=== PATIENT | female | born 1955 | race Caucasian/White ===

== ENCOUNTER 2018-08-14 11:13 | Outpatient (CLI) | payer OTHER, MEDICARE | END 2018-08-14 11:14 | disposition home or self-care (01) | LOC: BICMAMMO 11:13 | PROVIDERS: ATTEND Internal Medicine Medical Oncology | DX: Z12.31 Encounter for screening mammogram for malignant neoplasm of breast (principal); Z85.9 Personal history of malignant neoplasm, unspecified | CPT/HCPCS: 77063; 77067 ==

== ENCOUNTER 2018-10-21 11:38 | Day surgery (SDC) | payer OTHER, MEDICARE ==
[2018-10-21] MEDS ORDERED: Sodium Chloride 0.9% 20 ML ONE (11:49)
[2018-10-21] MEDS ORDERED: diphenhydrAMINE 25 MG CAP PO SCH (12:00)
[2018-10-21] MEDS ORDERED: Acetaminophen 500 MG TAB PO SCH (12:00)
[2018-10-21] MEDS ORDERED: OCTAGAM 10% 20 GM, OCTAGAM 10% 5 GM in Admixture Fee 1 EACH IVPB SCH (12:00)
[2018-10-21 12:03] VITALS: TEMP 98.3
[2018-10-21] MEDS ORDERED: OCTAGAM 10% 30 GM in Admixture Fee 1 EACH IVPB SCH (12:15)
[2018-10-21 15:05] VITALS: BP 175/85
== END 2018-10-21 15:05 | disposition home or self-care (01) ==
LOC: ONC/OP 11:38
PROVIDERS: ATTEND Internal Medicine Medical Oncology
DX: C90.01 Multiple myeloma in remission (principal); D80.1 Nonfamilial hypogammaglobulinemia; J44.9 Chronic obstructive pulmonary disease, unspecified; Z88.1 Allergy status to other antibiotic agents; Z87.891 Personal history of nicotine dependence; Z79.899 Other long term (current) drug therapy
CPT/HCPCS: 96365; 96366; J1568

== ENCOUNTER 2018-12-11 13:51 | Outpatient (CLI) | payer OTHER, MEDICARE ==
--- NOTE | 2018-12-11 17:09 | MRI ---
MRI CERVICAL SPINE WITHOUT CONTRAST 12/11/18 Multiplanar and multisequential images were obtained. INDICATIONS: Cervical pain. Cervical stenosis. Comparison made to MRI cervical spine dated 06/15/13. FINDINGS: The cervical vertebrae maintain height and alignment. Degenerative changes are noted. Anterior osteop hytes in the cervical vertebrae. There is loss of disc space at C5-6 and C6-7, similar to the prior study. Posterior spondylosis and disc bulge more prominent at multiple levels today. At C2-3, no significant disc bulge or spondylosis. At C3-4, posterior disc bulge and spondylosis impinge on the anterior cord. There is hypertrophic rosa isela nges in the posterior canal impinging on the posterior cord. Moderate cervical canal stenosis at this level. Evidence of bilateral foraminal stenosis. At C4-5, posterior disc bulge and spondylosis impinge on and mildly indents the anterior cord. Hypert rophic changes in the posterior canal impinge on the posterior cord. Moderate cervical canal stenosis . Bilateral foraminal stenosis due to facet and uncinate hypertrophy. At C5-6, prominent disc bulge and spondylosis impinge on and indents the anterior cord. Moderate cerv ical canal stenosis with bilateral foraminal stenosis. At C6-7, disc bulge and spondylosis impinge on the anterior cord. Mild to moderate cervical canal geri nosis and bilateral foraminal stenosis. Cord signal appears normally maintained without evidence of myelomalacia. IMPRESSION: Disc bulge and spondylitic changes at multiple levels of the cervical spine impinge on the cord. The re is moderate cervical canal stenosis with cord impingement at C3-4, C4-5, C5-6 and C6-7 levels. For aminal stenosis at these levels as noted above. CT may be of benefit to better assess the osseous hyp ertrophic changes. POS: MARCI
--- NOTE | 2018-12-11 17:29 | MRI ---
MR OF THE LUMBAR SPINE WITHOUT CONTRAST 12/11/18 INDICATION: History of leg pain for several years with low back pain and lumbar radiculopathy. COMPARISON: Lumbar spine radiograph dated 07/13/13. FINDINGS: The anterior translation of L4 on L5 appears slightly more pronounced. There is still grade I anterol isthesis present. No pars defect is grossly evident. Conus is seen to terminate at the L1 vertebral l evel. At L5-S1, there is advanced facet joint degenerative change and a asymmetric broad based bulge. There is no appreciable central canal or neural foraminal narrowing. At L4-5, there is severe central canal narrowing due to the anterolisthesis, facet hypertrophy, broad based bulge and ligamentum flavum hypertrophy. Loss of disc space height in additional to anterolist hesis induces mild to moderate bilateral neural foraminal narrowing. At L3-4, there is a broad based bulge with facet hypertrophy without appreciable central canal or radha ral foraminal narrowing. At the L2-3 level, there is mild facet joint degenerative change but no appreciable central canal or neural foraminal narrowing. At L1-2, there is a broad based bulge with facet hypertrophy but no appreciable central canal narrowi ng. There is mild neural foraminal encroachment. At T12-L1, there is a broad based disc osteophyte complex without appreciable central canal or neural foraminal narrowing. IMPRESSION: 1. Severe stenosis at L4-5 due to grade I anterolisthesis, disc degenerative and facet osteoarth ritic change. 2. Mild to moderate bilateral neural foraminal narrowing at L4-5. POS: MARCI
== END 2018-12-11 13:52 | disposition home or self-care (01) ==
LOC: TBSIIMAG 13:51
PROVIDERS: ATTEND Neurological Surgery
DX: M51.16 Intervertebral disc disorders with radiculopathy, lumbar region (principal); M48.02 Spinal stenosis, cervical region; M54.5 Low back pain; M54.2 Cervicalgia; M47.26 Other spondylosis with radiculopathy, lumbar region; M43.16 Spondylolisthesis, lumbar region; M48.061 Spinal stenosis, lumbar region without neurogenic claudication; M47.812 Spondylosis without myelopathy or radiculopathy, cervical region; M50.90 Cervical disc disorder, unspecified, unspecified cervical region
CPT/HCPCS: 72141; 72148

== ENCOUNTER 2018-12-12 11:36 | Day surgery (SDC) | payer OTHER, MEDICARE ==
[2018-12-12 11:47] VITALS: BP 144/82; TEMP 98.2
[2018-12-12] MEDS ORDERED: diphenhydrAMINE 50 MG in Sodium Chloride 0.9% 50 ML IVPB SCH (12:00)
[2018-12-12] MEDS ORDERED: PRIVIGEN IVPB SCH ×2 (12:00)
[2018-12-12] MEDS ORDERED: Acetaminophen 500 MG TAB PO SCH (12:00)
[2018-12-12] MEDS ORDERED: Sodium Chloride 0.9% 20 ML ONE (13:35)
== END 2018-12-12 14:30 | disposition home or self-care (01) ==
LOC: ONC/OP 11:36
PROVIDERS: ATTEND Internal Medicine Medical Oncology
DX: D80.1 Nonfamilial hypogammaglobulinemia (principal); C90.01 Multiple myeloma in remission; F31.9 Bipolar disorder, unspecified; F41.9 Anxiety disorder, unspecified; J44.9 Chronic obstructive pulmonary disease, unspecified; Z87.891 Personal history of nicotine dependence; Z79.899 Other long term (current) drug therapy; Z79.52 Long term (current) use of systemic steroids; Z88.1 Allergy status to other antibiotic agents; Z88.8 Allergy status to other drugs, medicaments and biological substances
CPT/HCPCS: 36415; 80053; 82248; 82728; 83615; 83883; 84100; 84165; 84550; 96375; 96413; 96415; J1200; J1459; J7050

== ENCOUNTER 2019-02-05 09:39 | Inpatient (IN) | payer OTHER, MEDICARE ==
--- NOTE | 2019-02-04 14:00 | HP ---
HISTORY OF PRESENT ILLNESS: This is a 63-year-old female who returns to our office after a 10-year hiatus. The patient states that 10 years ago [address] saw Dr[address] Perez for some neck pain. At that time, he prescribed injections. The injections gave good relief until about a month ago. The patient complains of severe neck pain and pain between her shoulder blades that moves down the right arm to her elbow. She states that both hands will go numb and they do not feel like her own. She has become more clumsy and drops items and it is much more difficult to write. She states that her balance has progressively gotten worse. The patient is also complaining of some back pain, worse on the right than the left and goes down the back of her leg to the lateral aspect of her foot. The patient states that her neck and her low back are very painful and when she turns over at night. She states that both her feet are numb. The patient denies recent physical therapy. REVIEW OF SYSTEMS: A 10-point review of systems has been completed and is negative other than stated in the above HPI. PAST MEDICAL HISTORY: 1. Cancer/tumor. 2. Epilepsy. 3. Chronic bronchitis. 4. . 5. Depression. 6. Anxiety. 7. Bipolar. 8. Dementia. 9. Anemia. 10. History of blood transfusion. PAST SURGICAL HISTORY: 1. Brain surgery. 2. Hysterectomy. PREVIOUS HOSPITALIZATIONS: 1. Pneumonia. 2. Diverticulitis. 3. Cancer treatment. FAMILY HISTORY: Father is at 78, diagnosed with heart disease and stroke. Mother is at 76, lung cancer diagnosis. Children are alive. Grandmother has lung cancer. Grandfather, cardiac disease. SOCIAL HISTORY: The patient is a former smoker. Drinks alcohol occasionally. Denies any other illicit drugs. She is and right-handed. MEDICATIONS: 1. Levothyroxine. 2. Vitamin D. 3. Trintellix. 4. Aleve. ALLERGIES: TEQUIN. PHYSICAL EXAMINATION: HEENT: Normal. Head is normocephalic and atraumatic. Pupils are equal, round, and reactive to light. NECK: Soft and supple. No masses are noted. Range of motion is intact, worse with flexion and extension. Tenderness posteriorly. NEUROLOGIC: Awake, alert, oriented x3. Memory, attention, fund of knowledge are normal. Cranial nerves are normal. Grossly intact. EXTREMITIES: Upper extremities 5/5 bilateral strength in deltoids, biceps, triceps, wrist extension, finger extension, tandem walk, 2 steps before side step, brisk reflexes of lower extremities. Lower extremities 5/5 bilateral strength, hip flexion, knee flexion, knee extension, dorsiflexion, plantar flexion, EHL, toe extension. Brisk reflexes. No clonus. No Babinski. Sensation equal and tenderness over the sciatic, sacroiliac, and greater trochanteric bursa. IMAGING: MRI of the cervical spine shows severe cord compression at C5-C6 and C6-7. Ycjcpwes-kf-ojuwch and C3-C4, C4-C5 segments are concerning. 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 Dr. Perez has offered a 4-level anterior cervical discectomy and fusion. We have gotten informed consent. We have discussed the indications, risks, benefits, alternatives, and expected results of the surgery. The risks discussed included , but were not limited to, bleeding, infection, CSF leak, nerve damage, weakness, swallowing trouble, feeding tube placement, tracheal injury, esophageal injury, vocal cord injury, spinal cord injury, incontinence, paralysis, ventilator dependence, wheelchair dependence, stroke, loss of vision, carotid artery injury , jugular vein injury, hardware misplacement, cardiopulmonary complications of anesthesia or . Long-term complications discussed included, but were not limited to hardware failure and degradation of surrounding disks. She states that she understands the risks and is willing to proceed. Job ID: [id number] [facility]
[2019-02-04 17:00] VITALS: BMI 27.3
[2019-02-05] MEDS ORDERED: PHENYLEPHRINE-NS 100 MCG/ML 10 ML SYRINGE ONE (10:29)
[2019-02-05] MEDS ORDERED: Ondansetron PF 4 MG/2 ML Vial ONE (10:29)
[2019-02-05] MEDS ORDERED: Lidocaine 1% PF 5 ML VIAL ONE (10:29)
[2019-02-05] MEDS ORDERED: ePHEDrine 50 MG/ML VIAL ONE (10:29)
[2019-02-05] MEDS ORDERED: PROPOFOL 200 MG/20 ML VIAL ONE (10:29)
[2019-02-05] MEDS ORDERED: Dexamethasone 20 MG/5 ML VIAL ONE (10:29)
[2019-02-05] MEDS ORDERED: Glycopyrrolate 0.2 MG/ML 5 ML SYRINGE ONE (10:29)
[2019-02-05] MEDS ORDERED: Rocuronium Bromide 10 MG/ML (10ML VIAL) ONE (10:29)
[2019-02-05 11:29] LABS: Hemoglobin 11.7 g/dL (12.0-16.0); Mean Corpuscular HGB CONC 32.1 g/dL (32.0-36.0); Mean Corpuscular Hemoglobin 29.9 pg (27.0-31.0); Mean Platelet Volume 6.2 fL (7.4-10.4); Platelet Count 356 thou/uL (130-400); RBC Distribution Width 13.3 % (11.5-14.5); Red Blood Cell (RBC) Count 3.91 mill/uL (4.20-5.40)
[2019-02-05 11:37] LABS: INR-International Normal Ratio 0.9; PTT 30.5 SEC (22.9-36.1); Prothrombin Time 12.7 SEC (12.0-14.7)
[2019-02-05] MEDS ORDERED: Sodium Chloride 0.9% 10 ML ONE (11:59)
[2019-02-05] MEDS ORDERED: Thrombin 5000 UNITS/5 ML VIAL ONE ×2 (11:59→17:10)
[2019-02-05] MEDS ORDERED: Fentanyl 100 MCG/2 ML VIAL ONE ×3 (12:29→18:58)
--- NOTE | 2019-02-05 15:53 | EKG ---
Test Reason : PREOP Blood Pressure : / mmHG Vent. Rate : 079 BPM Atrial Rate : 079 BPM P-R Int : 128 ms QRS Dur : 084 ms QT Int : 408 ms P-R-T Axes : 072 074 067 degrees QTc Int : 467 ms Normal sinus rhythm Normal ECG Confirmed by STEVE DAVE ([id number]) on 02/05/2019 3:52:54 PM Referred By: KIRSTEN Confirmed By:STEVE DAVE
[2019-02-05] MEDS ORDERED: Thrombin 20 THOU.UNITS/20 ML VIAL ONE (17:10)
[2019-02-05] MEDS ORDERED: Promethazine HCl 25 MG/ML VIAL SLOW IVP PRN (18:18)
[2019-02-05] MEDS ORDERED: Ondansetron HCl/PF 4 MG/2 ML Vial IVP PRN (18:18)
[2019-02-05] MEDS ORDERED: Promethazine HCl 25 MG/ML VIAL IM PRN ×2 (18:18→19:04)
[2019-02-05] MEDS ORDERED: diphenhydrAMINE 25 MG CAP PO PRN (19:04)
[2019-02-05] MEDS ORDERED: tiZANidine HCl 4 MG TAB PO PRN (19:04)
[2019-02-05] MEDS ORDERED: traMADol HCl 50 MG TAB PO PRN ×2 (19:04)
[2019-02-05] MEDS ORDERED: Bisacodyl 10 MG SUPP PR PRN (19:04)
[2019-02-05] MEDS ORDERED: Acetaminophen 650 MG Suppository PR PRN (19:04)
[2019-02-05] MEDS ORDERED: Milk Of Magnesia 30 ML UDCUP PO PRN (19:04)
[2019-02-05] MEDS ORDERED: Mag-Al 1200 mg/1200 mg/30 ML UDCUP PO PRN (19:04)
[2019-02-05] MEDS ORDERED: Acetaminophen/Codeine 30-300mg Tablet PO PRN (19:04)
[2019-02-05] MEDS ORDERED: diphenhydrAMINE 50 MG/ML VIAL IVP PRN (19:04)
[2019-02-05] MEDS ORDERED: Promethazine 25 MG TAB PO PRN (19:04)
[2019-02-05] MEDS ORDERED: Acetaminophen 325 MG TAB PO PRN (19:04)
[2019-02-05] MEDS ORDERED: Ondansetron PF 4 MG/2 ML Vial IVP PRN (19:04)
[2019-02-05] MEDS ORDERED: Morphine 4 MG/ML VIAL SLOW IVP PRN ×2 (19:04)
[2019-02-05] MEDS ORDERED: Promethazine HCl 25 MG/ML VIAL ONE (19:05)
[2019-02-05] MEDS ORDERED: Sodium Chloride 0.9% 1,000 ML IV SCH (19:15)
[2019-02-05] MEDS: Acetaminophen/Codeine 30-300mg Tablet PO PRN (20:41)
[2019-02-05] MEDS: CEFAZOLIN 2 GM in Premix Bag 1 BAG IVPB SCH (20:42)
[2019-02-05] MEDS ORDERED: Non-Formulary Item 1 EACH (Vit D3-Vit K/Berberine/Hops [Ostera Tablet] 1 TAB) PO SCH (21:00)
[2019-02-05] MEDS ORDERED: Ferrous Sulfate 325 MG TAB PO SCH (21:00)
[2019-02-05] MEDS ORDERED: Melatonin 3 MG TAB PO SCH (21:00)
--- NOTE | 2019-02-06 00:36 | OP ---
DATE OF PROCEDURE: 02/05/2019 VIRTUAL ASSISTANT FOR ADVERTISERS: Yulia Bah PA-C. PREOPERATIVE INDICATION: Prevent further neurological deterioration. PREOPERATIVE DIAGNOSIS: Cervical intervertebral disk disease with cord compression and myelopathy, multiple segments. POSTOPERATIVE DIAGNOSIS: Cervical intervertebral disk disease with cord compression and myelopathy, multiple segments. PROCEDURE PERFORMED: Anterior cervical diskectomy, intervertebral arthrodesis, placement of intervertebral biomechanical device, anterior cervical plating C3-C4, C4-C5, C5-C6, C6-C7, local morselized autograft, morselized allograft, operating microscope. PREOPERATIVE MEDICATIONS: Ancef 2 g IV. DRAIN NUMBER: 1. DRAIN TYPE: A 10-[place]. DESCRIPTION OF PROCEDURE: The patient was brought to the operating room. General endotracheal anesthesia was induced. The patient's head was positioned on a gel-filled doughnut shaped headrest keeping the neck in normal anatomic alignment. A lateral fluoro radiograph was used to plan our incision. The right side of the neck was sterilely prepped and draped. We opened with a 10 blade knife and controlled bleeding with bipolar cautery. We dissected sharply to the platysma and then cut this muscle in line with our incision. We continued our dissection medial to the sternocleidomastoid and lateral to the trachea and esophagus. We arrived at the prevertebral space. We placed a marker at C3-C4 and took a lateral fluoro radiograph to confirm the levels upon which we were operating. We then elevated the longus colli muscles off the anterior surface of C3, C4, C5, C6, and C7. We placed a self-retaining lateral retractor under the longus colli muscles at the level of C6. We placed distraction pins at C5 and C7 and distracted across the intervening interspaces. We incised these interspaces with a 15 blade knife and removed disk contents using curettes and rongeurs. We brought the operating microscope into the field. Under microscopic magnification and using microsurgical techniques, we removed the remainder of the intervertebral disk. We accessed the ventral epidural space with a microcurette and using Kerrison rongeurs we removed posterior osteophytes and the remainder of the intervertebral disk and posterior longitudinal ligament across the entire interspace from one nerve root all the way to the other. This was completed at C5-C6 and at C6-C7. We then turned our attention to arthrodesis. Using curettes, we prepared the endplates for grafting. We measured the height of each of these two interspaces to 6 mm. A 6 mm PEEK intervertebral graft was brought into the field. This was loaded with demineralized bone matrix and morselized autograft. The autograft was obtained from our osteophyte removal during decompression. The osteophytes were cleaned of soft tissue attachments, morcellized, and added into our demineralized bone matrix to form a fusion substrate. The substrate was placed in the PEEK graft and the graft was advanced into the C5-C6 interspace under radiographic guidance to the appropriate depth. In the exact same fashion, a PEEK graft loaded with demineralized bone matrix and morselized autograft was advanced into the C6-C7 interspace to the appropriate depth. We then removed our distraction pins from the C7. We removed our lateral retractor into C4. We placed our distraction pin at C3 and distracted from C3 to C5. In the exact same fashion, we performed our microdiskectomy, removal of posterior osteophytes, removal of posterior longitudinal ligament and decompression of the entire interspace at C3-C4 and again at C4-C5. We prepared the endplates in the same way and measured the height of these interspaces to 7 mm at C3-C4 and 6 mm at C4-C5. At C4-5, the PEEK graft was shallower variety. This was due to the fact the interspace was shorter and the distance between the intervertebral body and the posterior margin of the vertebral bodies. The short C6 graft was loaded with demineralized bone matrix, morselized autograft and advanced into the C4-C5 interspace under radiographic guidance to the appropriate depth. The standard depth of 7 mm intervertebral graft was loaded with demineralized bone matrix, morselized autograft, and advanced into the C3-C4 interspace under radiographic guidance. We then removed our distraction pins. A 5-level anterior cervical plate was brought into the field. We drilled rotor pilot holes through the plate into the vertebral segments at C3, C4, C5, C6, and C7, and we affixed the plate using 14 mm screws. We engaged the locking mechanism over each of the 10 screws. Fixed angle screws were used at C7 and variable angle screws at the rest of the interspaces. AP and lateral fluoro radiographs confirmed adequate positioning of our instrumentation. We irrigated copiously with bacitracin irrigation. We tunneled the drain inferiorly through a separate stab incision. We closed the wound in anatomical layers over the drain. This was a clean case, no contamination. Job ID: [id number]
[2019-02-06] MEDS: Acetaminophen/Codeine 30-300mg Tablet PO PRN ×3 (02:40→11:22)
[2019-02-06] MEDS: CEFAZOLIN 2 GM in Premix Bag 1 BAG IVPB SCH ×2 (04:50→11:18)
[2019-02-06] MEDS ORDERED: Levothyroxine Sodium 75 MCG TAB PO SCH (06:00)
--- NOTE | 2019-02-06 07:24 | PRG ---
DATE OF SERVICE: 02/06/2019 Ms. Gong is one day out from 4-level ACDF for severe cervical spondylotic myelopathy. Her hands are better today than they have been in months to years, and sensation is improved. Her finger dexterity is better. She already walked out around the halls last night. Her drain output looks like it is below threshold for removal. This morning, we will have her up and ambulating. She should wear a collar when she is out of bed. If the drainage is indeed below on average of 5 mL an hour, the drain can be removed and she can be discharged home. She is to wear a collar at home when she is out of bed and I will keep her in a collar for 2 months. Followup will be in 2 weeks. When she is not taking narcotic pain medications, she can drive a car, but needs to use the mirrors. She should not lift over 20 pounds. Showers are acceptable starting this evening. Job ID: [id number]
[2019-02-06 07:55] VITALS: TEMP 98.4
[2019-02-06] MEDS ORDERED: ARMODAFINIL PO SCH (09:00)
[2019-02-06] MEDS ORDERED: FLUoxetine HCl 20 MG CAP PO SCH (09:00)
[2019-02-06] MEDS ORDERED: Loratadine 10 MG TAB PO SCH (09:00)
[2019-02-06] MEDS ORDERED: Lactinex Tablet PO SCH (09:00)
[2019-02-06] MEDS ORDERED: Magnesium Oxide 400 MG TAB PO SCH (09:00)
[2019-02-06 11:30] VITALS: BP 133/88
== END 2019-02-06 12:22 | disposition home or self-care (01) | DRG 472 ==
LOC: SURG A 09:39 → SURG B 19:33
PROVIDERS: ADMIT Neurological Surgery; ATTEND Neurological Surgery
PROC: 0RG20A0 Fusion of 2 or more Cervical Vertebral Joints with Interbody Fusion Device, Anterior Approach, Anterior Column, Open Approach (ICD-10-PCS; principal; 2019-02-05)
PROC: 0RT30ZZ Resection of Cervical Vertebral Disc, Open Approach (ICD-10-PCS; 2019-02-05)
DX: M50.023 Cervical disc disorder at C6-C7 level with myelopathy (principal); M47.12 Other spondylosis with myelopathy, cervical region; M48.02 Spinal stenosis, cervical region; G40.909 Epilepsy, unspecified, not intractable, without status epilepticus; F41.9 Anxiety disorder, unspecified; F31.9 Bipolar disorder, unspecified; F03.90 Unspecified dementia, unspecified severity, without behavioral disturbance, psychotic disturbance, mood disturbance, and anxiety; Z90.710 Acquired absence of both cervix and uterus; Z98.890 Other specified postprocedural states; Z87.891 Personal history of nicotine dependence; Z88.1 Allergy status to other antibiotic agents
CPT/HCPCS: 36415; 76000; 85027; 85610; 85730; 93005; 93010; C1713; C1776; J0131; J1100; J2001; J2405; J2550; J2704; J3010; J3490

== ENCOUNTER 2019-04-02 09:56 | Outpatient (CLI) | payer OTHER, MEDICARE ==
--- NOTE | 2019-04-02 10:20 | RAD ---
Cervical spine 5 views: 04/02/2019 COMPARISON: None available HISTORY: Evaluate spine following surgery FINDINGS: Frontal imaging demonstrates multilevel mid and lower cervical spine facet and uncovertebra l osteophyte formation. The open-mouth odontoid view demonstrates a normal-appearing dens and C1-2 articulation. The Fuchs view demonstrates a normal-appearing dens as well. Multilevel anterior discectomy and fusion hardware is present, spanning the C3-4, C4-5, C5-6, and C6- 7 levels. No evidence for hardware failure. No anterolisthesis or retrolisthesis. Mild soft tissue swelling in the prevertebral space is noted anterior to the fusion plate consistent with recent surgery. Incidental note is made of numerous old incompletely imaged left-sided rib fractures. IMPRESSION: Postoperative and degenerative changes involving the cervical spine as detailed above.
== END 2019-04-02 09:57 | disposition home or self-care (01) ==
LOC: TBSIIMAG 09:56
PROVIDERS: ATTEND Neurological Surgery
DX: M50.00 Cervical disc disorder with myelopathy, unspecified cervical region (principal); M47.12 Other spondylosis with myelopathy, cervical region; M48.02 Spinal stenosis, cervical region; Z98.890 Other specified postprocedural states
CPT/HCPCS: 72040

== ENCOUNTER 2019-08-18 10:33 | Outpatient (CLI) | payer OTHER, MEDICARE ==
--- NOTE | 2019-08-18 14:35 | NM ---
Whole body bone scan: 08/18/2019 COMPARISON: None HISTORY: Multiple myeloma TECHNIQUE: Anterior and posterior whole-body imaging obtained following the intravenous administratio n of 32.3 mCi technetium 99m labeled MDP FINDINGS: Physiologic activity noted within the kidneys and urinary bladder. There are foci of radiotracer activity overlying multiple posterior and lateral left RIBS, suggesting areas of prior fracture. There is a focus of radiotracer activity overlying the posterior aspect of the right 10th rib, also consistent with prior fracture when compared to CT examination performed 01/26/2017. There is prominent radiotracer activity at the sternoclavicular joint on the right, consistent with degenerative change when correlated with 04/25/[address]. There is prominent radiotracer activity overlying the nasal cavity, likely on the basis of paranasal sinus disease. No long bone lesion, spine lesion, pelvic lesion, or calvarial lesion. IMPRESSION: No scintigraphic evidence of metastatic disease.
[2019-08-20 13:10] LABS: A/G Ratio 1.2 (0.7-1.7); Albumin 3.8 g/dL (2.9-4.4); Alpha 1 0.3 g/dL (0.0-0.4); Alpha 2 0.9 g/dL (0.4-1.0); Beta 1.2 g/dL (0.7-1.3); Gamma 0.9 g/dL (0.4-1.8); Globulin, Total 3.2 g/dL (2.2-3.9); M-Spike Not Observed g/dL (Not Observed)
[2019-08-20 14:10] LABS: Albumin-Ur 43.2 % (.); Alpha 2 - Ur 15.5 % (.); Beta-Ur 15.6 % (.); Gamma-Ur 18.8 % (.); M-Spike,% Not Observed % (Not Observed); Protein, Urine Less than 4.0 mg/dL (Not Estab.)
== END 2019-08-18 10:34 | disposition home or self-care (01) ==
LOC: NM 10:33
PROVIDERS: ATTEND Neurological Surgery
DX: Z08 Encounter for follow-up examination after completed treatment for malignant neoplasm (principal); Z85.79 Personal history of other malignant neoplasms of lymphoid, hematopoietic and related tissues
CPT/HCPCS: 78306; 84165; 84166; A9503

== ENCOUNTER 2019-08-20 14:01 | Outpatient (CLI) | payer OTHER, MEDICARE ==
--- NOTE | 2019-08-20 14:50 | RAD ---
XR Lumbar Spine Bending Min 4V History: M 43.16. Pain. Comparison: Lumbar spine MRI December 2018 Findings: No acute fracture. Mild dextro scoliosis. Moderate right and mild left SI joint degenerativ e disease. There is anterolisthesis of L4 over L5 6 mm in the neutral position with mild translation with flexio n and extension. Advanced narrowing of the interspinous space from L3-L5. No acute fracture. Moderate narrowing of the L4/L5 and L5/S1 disc spaces. Severe facet arthrosis lower lumbar spine. Impression: Grade 1 anterolisthesis L4 over L5 with abnormal translation with flexion and extension.
== END 2019-08-20 14:02 | disposition home or self-care (01) ==
LOC: RAD 14:01
PROVIDERS: ATTEND Neurological Surgery
DX: M43.16 Spondylolisthesis, lumbar region (principal)
CPT/HCPCS: 72120

== ENCOUNTER 2019-08-24 12:01 | Inpatient (IN) | payer OTHER, MEDICARE ==
--- NOTE | 2019-08-31 14:34 | HP ---
HISTORY OF PRESENT ILLNESS: This is a 63-year-old female. She returns to our office after quite some time to discuss lumbar back pain. She states that it is worse on the right than the left and goes down the back of her leg to the lateral aspect of her foot. She states that her neck and her low back are very painful when she turns over at night and she feels a sharp grab. The patient states that both feet go numb. She denies any recent physical therapy of the lower back. Takes Aleve and uses pain patch for relief. She describes shocking pain that radiates down both of her legs at times when standing. She states this has become unbearable and cannot stand for very long. She has to sit in a chair to rest. There is a strange sensation of bone pain throughout, but this is not radicular and not localized to the back/legs, but is in the neck, shoulders, arms, midback, and low back of her legs. REVIEW OF SYSTEMS: A 10-point review of systems has been completed and is negative other than stated in the above HPI. PAST MEDICAL HISTORY: Cancer tumor, epilepsy, chronic bronchitis, frequent pneumonia, depression, anxiety, bipolar, dementia, anemia, and history of blood transfusion. SURGICAL HISTORY: Brain surgery, hysterectomy, ACDF done in 01/[address] Perez. FAMILY HISTORY: Father is , diagnosed with heart disease and stroke. Mother is , diagnosed with lung cancer. SOCIAL HISTORY: The patient is a former smoker. Drinks alcohol on occasion. Denies any other illicit drug use. , and right-handed. MEDICATIONS: 1. Levothyroxine. 2. Vitamin D. 3. Trintellix. 4. Aleve. ALLERGIES: TEQUIN. PHYSICAL EXAMINATION: CONSTITUTIONAL: Awake, alert, oriented. RESPIRATIONS: Normal work of breathing on room air. NEUROLOGIC: Gait and station, the patient leans forward. Motor exam, there is normal strength in iliopsoas, quadriceps, hamstring, anterior tib, EHL, gastrocs, and toe flexors. Sensory exam, Tinel's at the elbows and right wrist. EMG, carpal tunnel right and ulnar bilateral. MRI, severe L4-L5 stenosis with strapping and tension on the nerves off the conus, listhesis at L4-L5. ASSESSMENT AND PLAN: Lumbar radiculopathy and listhesis at L4-L5. Dr. Perez has offered surgery, laminectomy, TLIF at L4-L5. The patient states that she understands the risks of the procedure and is willing to proceed. Job ID: [id number]
[2019-09-03 14:51] VITALS: BMI 28.3
[2019-09-04] MEDS ORDERED: Thrombin 5000 UNITS/5 ML VIAL ONE (06:11)
[2019-09-04] MEDS ORDERED: Sodium Chloride 0.9% 30 ML ONE (06:11)
[2019-09-04] MEDS ORDERED: Bupivacaine HCl 0.5%/Epinephrine 1:200,000/PF 30 ml Vial ONE (06:11)
[2019-09-04 06:39] LABS: Hemoglobin 13.3 g/dL (12.0-16.0); Mean Corpuscular HGB CONC 33.2 g/dL (32.0-36.0); Mean Corpuscular Hemoglobin 31.4 pg (27.0-31.0); Mean Corpuscular Volume 94.4 fL (78.0-98.0); Mean Platelet Volume 6.8 fL (7.4-10.4); Platelet Count 317 thou/uL (130-400); RBC Distribution Width 13.1 % (11.5-14.5); Red Blood Cell (RBC) Count 4.25 mill/uL (4.20-5.40); White Blood Cell (WBC) Count 7.3 thou/uL (4.8-10.8)
[2019-09-04 06:43] LABS: INR-International Normal Ratio 0.9; PTT 29.7 SEC (22.9-36.1)
[2019-09-04] MEDS ORDERED: Fentanyl 100 MCG/2 ML VIAL ONE ×3 (06:49→11:57)
[2019-09-04] MEDS ORDERED: HYDROmorphone 2 MG/ML VIAL ONE (11:06)
[2019-09-04] MEDS ORDERED: Lidocaine 1% PF 5 ML VIAL ONE (11:20)
[2019-09-04] MEDS ORDERED: Glycopyrrolate 0.2 MG/ML 5 ML SYRINGE ONE (11:20)
[2019-09-04] MEDS ORDERED: PROPOFOL 200 MG/20 ML VIAL ONE (11:20)
[2019-09-04] MEDS ORDERED: Dexamethasone 20 MG/5 ML VIAL ONE (11:20)
[2019-09-04] MEDS ORDERED: PHENYLEPHRINE-NS 100 MCG/ML 10 ML SYRINGE ONE (11:20)
[2019-09-04] MEDS ORDERED: Rocuronium Bromide 10 MG/ML (10ML VIAL) ONE (11:20)
[2019-09-04] MEDS ORDERED: Ondansetron PF 4 MG/2 ML Vial ONE (11:20)
[2019-09-04] MEDS ORDERED: Ketorolac Tromethamine 30 MG/ML VIAL ONE (11:20)
[2019-09-04] MEDS ORDERED: ePHEDrine 50 MG/ML VIAL ONE (11:20)
[2019-09-04] MEDS ORDERED: diphenhydrAMINE 50 MG/ML VIAL IVP PRN (11:32)
[2019-09-04] MEDS ORDERED: Acetaminophen/Codeine 30-300mg Tablet PO PRN (11:32)
[2019-09-04] MEDS ORDERED: traMADol HCl 50 MG TAB PO PRN ×2 (11:32)
[2019-09-04] MEDS ORDERED: Acetaminophen 325 MG TAB PO PRN (11:32)
[2019-09-04] MEDS ORDERED: diphenhydrAMINE 25 MG CAP PO PRN (11:32)
[2019-09-04] MEDS ORDERED: Mag-Al 1200 mg/1200 mg/30 ML UDCUP PO PRN (11:32)
[2019-09-04] MEDS ORDERED: Promethazine 25 MG TAB PO PRN (11:32)
[2019-09-04] MEDS ORDERED: Milk Of Magnesia 30 ML UDCUP PO PRN (11:32)
[2019-09-04] MEDS ORDERED: Bisacodyl 10 MG SUPP PR PRN (11:32)
[2019-09-04] MEDS ORDERED: Acetaminophen 650 MG Suppository PR PRN (11:32)
[2019-09-04] MEDS ORDERED: Ondansetron PF 4 MG/2 ML Vial IVP PRN (11:32)
[2019-09-04] MEDS ORDERED: Morphine 2 MG/ML SYRINGE SLOW IVP PRN (11:32)
[2019-09-04] MEDS ORDERED: Promethazine HCl 25 MG/ML VIAL IM PRN ×2 (11:32→11:38)
[2019-09-04] MEDS ORDERED: Morphine 4 MG/ML VIAL SLOW IVP PRN (11:32)
[2019-09-04] MEDS ORDERED: HYDROmorphone 2 MG/ML VIAL SLOW IVP PRN (11:38)
[2019-09-04] MEDS ORDERED: Promethazine HCl 25 MG/ML VIAL SLOW IVP PRN (11:38)
[2019-09-04] MEDS ORDERED: PACU-Morphine 4MG/ML VIAL SLOW IVP PRN (11:38)
[2019-09-04] MEDS ORDERED: Ondansetron HCl/PF 4 MG/2 ML Vial IVP PRN (11:38)
--- NOTE | 2019-09-04 12:20 | OP ---
DATE OF PROCEDURE: 09/04/2019 WELT STITCHER: Yulia Bah PA-C PREOPERATIVE INDICATION: Treat pain and prevent neurological deterioration. PREOPERATIVE DIAGNOSES: L4-L5 spondylolisthesis, grade 1/grade 2 with severe canal stenosis and neurogenic claudication. POSTOPERATIVE DIAGNOSES: L4-L5 spondylolisthesis, grade 1/grade 2 with severe canal stenosis and neurogenic claudication. OPERATIVE PROCEDURES: Decompressive laminectomy with facetectomy and foraminotomy at L4-L5, transforaminal lumbar interbody arthrodesis L4-L5, placement of intervertebral biomechanical device L4-L5, pedicle screw and lesa instrumentation L4-L5, posterolateral arthrodesis L4-L5, and operating microscope. PREOPERATIVE MEDICATION: Ancef 2 g IV. DRAIN NUMBER: Zero. DRAIN TYPE: None. DESCRIPTION OF PROCEDURE: The patient was brought to the operating room. General endotracheal anesthesia was induced. The patient was positioned prone on the Edgardo frame with the appropriate padding for the chest and hips. A lateral fluoro radiograph was used to plan our incision. The lumbar skin was sterilely prepped and draped. We opened with a 10 blade knife and we controlled bleeding with bipolar and monopolar cautery. We used monopolar cautery to dissect through subcutaneous tissues to the thoracodorsal fascia. We incised the fascia in the midline, reflected the paraspinal muscles off the spinous process and lamina of L4 and L5. A self-retaining retractor was placed. A lateral fluoro radiograph to confirm the levels upon which we were operating. We then carried our dissection over the facet joints at L4-L5 and L3-L4 to identify the transverse processes of L4 and L5 bilaterally. We irrigated with bacitracin irrigation. Using Adson rongeur, removed the spinous process of L4 and the superior portion of L5. Using a Kerrison rongeur, we fashioned a laminectomy. We performed medial facetectomy to decompress both the canal and the lateral recess. We removed the superior 8 mm of the L5 lamina as well. With the decompression secured, we turned our attention to arthrodesis. We performed a complete facetectomy on the left at L4-L5. Using this access to the foramen, we opened the interspace sharply. We removed disk contents using curettes and rongeurs. We measured the height of the interspace to 11 mm with a rectangular bone rasp. We prepared the endplates for grafting using curettes to remove more intervertebral disk. An 11 mm PEEK intervertebral graft was brought into the field. The laminectomy bone was cleaned of soft tissue attachments, morcellized, and added to demineralized bone matrix to form a fusion substrate. The substrate was packed into the center of the PEEK device and that device was advanced into the interspace under radiographic guidance to the appropriate depth. We turned our attention to pedicle screw placement. Using bony anatomic landmarks, palpation of the medial portion of the pedicles, and a lateral fluoro radiograph as our guide, we chose entry points for pedicle screws at L4 and L5 bilaterally. We drilled out our entry points and used a bone awl to advance through the pedicles in the vertebral bodies. We tapped our trajectory with a threaded tap and we probed the trajectories. These were completely encased in bone. We placed 6.5 mm diameter screws into the pedicles at L4 and L5 bilaterally. A 360-degree image set was generated with our isocentric C-arm confirming adequate positioning of our pedicle screw instrumentation. We irrigated with bacitracin irrigation. We brought rods into the field and placed them into the screw heads. We gently compressed across the interspace and tightened caps down over the rods. Using a torque/counter-torque mechanism to adequate tightness. We made sure a ball probe could still pass through the foramen without any impingement at L4-L5 bilaterally. We irrigated once again bacitracin irrigation. We decorticated the transverse processes of L4 and L5 bilaterally and over the decorticated bone, we left demineralized bone matrix and morselized autograft as our posterolateral fusion substrate. A lateral recess decompression was checked under the operating microscope our foramen. Our foramina were checked as well. We found no microscopic impingement of any neural element. We infused local anesthetic in the paraspinal muscles. We treated the wound with vancomycin powder. We closed in anatomical layers. We applied a sterile dressing. This was a clean case, no contamination. Job ID: [id number]
[2019-09-04] MEDS: Sodium Chloride 0.9% 1,000 ML IV SCH (14:12)
[2019-09-04] MEDS: CEFAZOLIN 2 GM in Premix Bag 1 BAG IVPB SCH ×2 (14:34→23:50)
[2019-09-04] MEDS: tiZANidine HCl 4 MG TAB PO PRN (20:15)
[2019-09-04] MEDS: Acetaminophen/Codeine 30-300mg Tablet PO PRN ×2 (20:15→23:57)
[2019-09-04] MEDS ORDERED: Loratadine 10 MG TAB PO SCH (21:00)
[2019-09-05] MEDS: Sodium Chloride 0.9% 1,000 ML IV SCH (03:45)
[2019-09-05] MEDS ORDERED: Levothyroxine Sodium 75 MCG TAB PO SCH (06:00)
--- NOTE | 2019-09-05 08:19 | PRG ---
DATE OF SERVICE: 09/05/2019 Ms. Gong is one day out from decompression and fusion of lumbar spine for spondylolisthesis and severe stenosis. The leg cramping that she got in the past when she woke up in the morning is completely gone. When she stands and walks, her leg pain is gone. She has some anterior thigh numbness from positioning on the operating table and that has already improved. All her vitals look stable. Her neurological examination is reassuring and I think Ms. Gong is going to be ready for discharge either late this afternoon or tomorrow. She will continue to work with therapy in anticipation of such a discharge. Job ID: [id number]
[2019-09-05] MEDS: tiZANidine HCl 4 MG TAB PO PRN (08:37)
[2019-09-05] MEDS ORDERED: CARIPRAZINE HCL PO SCH (09:00)
[2019-09-05] MEDS ORDERED: FLU VACC QS2019-20(6MOS UP)/PF 60 MCG/0.5 ML SYRINGE IM ONE (09:00)
[2019-09-05] MEDS: Acetaminophen/Codeine 30-300mg Tablet PO PRN (10:08)
[2019-09-05 10:57] VITALS: BP 108/64; TEMP 97.7
== END 2019-09-05 10:57 | disposition home or self-care (01) | DRG 455 ==
LOC: SURG A 09-04 05:41 → SURG B 09-04 12:45
PROVIDERS: ADMIT Neurological Surgery; ATTEND Neurological Surgery
PROC: 0SG00AJ Fusion of Lumbar Vertebral Joint with Interbody Fusion Device, Posterior Approach, Anterior Column, Open Approach (ICD-10-PCS; principal; 2019-09-04)
PROC: 0SG0071 Fusion of Lumbar Vertebral Joint with Autologous Tissue Substitute, Posterior Approach, Posterior Column, Open Approach (ICD-10-PCS; 2019-09-04)
DX: M48.062 Spinal stenosis, lumbar region with neurogenic claudication (principal); M54.16 Radiculopathy, lumbar region; M43.16 Spondylolisthesis, lumbar region; F41.9 Anxiety disorder, unspecified; F31.9 Bipolar disorder, unspecified; D64.9 Anemia, unspecified; Z87.891 Personal history of nicotine dependence; Z79.899 Other long term (current) drug therapy
CPT/HCPCS: 36415; 76000; 85027; 85610; 85730; C1713; C1768; J0670; J0690; J1100; J1170; J1885; J2001; J2405; J2704; J3010; J3370; J3490

== ENCOUNTER 2019-11-02 12:42 | Outpatient (CLI) | payer OTHER, MEDICARE ==
--- NOTE | 2019-11-02 13:05 | RAD ---
EXAM: XR Lumbar Spine 2 Or 3 View DATE: 11/02/2019 12:00 AM INDICATION: Postop COMPARISON: Prior exam dated August 20, 2019 FINDING: AP and lateral of the lumbar spine was performed. There is been interval postsurgical delgadillo e of the posterior lateral interbody fusion at L4-5. There is grade 1 anterolisthesis of L4 and L5. There is an interbody cage at L4-L5. The instrumentation projects in the expected position without gr oss evidence of complication. The moderate spondylosis of the lumbar spine is otherwise stable. There are vascular calcifications of the abdominal aorta. IMPRESSION:Postoperative lumbar spine.
== END 2019-11-02 12:43 | disposition home or self-care (01) ==
LOC: TBSIIMAG 12:42
PROVIDERS: ATTEND Neurological Surgery
DX: M54.5 Low back pain (principal); Z98.890 Other specified postprocedural states
CPT/HCPCS: 72100

== ENCOUNTER 2023-05-22 09:21 | Day surgery (SDC) | payer MEDICARE, BC ==
[2023-05-20 14:26] VITALS: BMI 26.0
[2023-05-22] MEDS ORDERED: Oxymetazoline HCl 0.05% (30 ML BOT) ONE ×2 (11:29→11:47)
[2023-05-22] MEDS ORDERED: Lidocaine 1% (PF) 30 ML VIAL ONE (11:47)
[2023-05-22] MEDS ORDERED: EPINEPHrine 1 MG/ML AMP ONE (11:47)
[2023-05-22] MEDS ORDERED: fentaNYL 50 mcg/mL 1 mL Vial ONE ×3 (11:54→13:01)
[2023-05-22 12:04] LABS: Hemoglobin 11.5 g/dL (12.0-16.0); Platelet Count 322 10x3/uL (130-400)
[2023-05-22] MEDS ORDERED: Dexamethasone 20 MG/5 ML VIAL ONE (12:05)
[2023-05-22] MEDS ORDERED: PROPOFOL 200 MG/20 ML VIAL ONE (12:05)
[2023-05-22] MEDS ORDERED: Ondansetron PF 4 MG/2 ML Vial ONE (12:05)
[2023-05-22 12:23] LABS: Anion Gap 14 mmol/L (10-20); BUN (Urea Nitrogen) 20 mg/dL (9.8-20.1); Calc. Creatinine Clearance 73 mL/min (70-130); Calcium 9.6 mg/dL (7.8-10.44); Carbon Dioxide 21 mmol/L (23-31); Chloride 106 mmol/L (98-107); Estimated GFR 83; Glucose 99 mg/dL (80-115); Potassium 4.3 mmol/L (3.5-5.1); Sodium 137 mmol/L (136-145)
[2023-05-22] MEDS ORDERED: HYDROmorphone 0.5 MG/0.5 ML SYRINGE ONE (13:17)
== END 2023-05-22 14:58 | disposition home or self-care (01) ==
LOC: SDC 09:21
PROVIDERS: ATTEND Otolaryngology Plastic Surgery within the Head & Neck
PROC: 09BX8ZZ Excision of Left Sphenoid Sinus, Via Natural or Artificial Opening Endoscopic (ICD-10-PCS; principal; 2023-05-22)
PROC: 09BW8ZZ Excision of Right Sphenoid Sinus, Via Natural or Artificial Opening Endoscopic (ICD-10-PCS; 2023-05-22)
DX: J32.0 Chronic maxillary sinusitis (principal); J32.3 Chronic sphenoidal sinusitis; R09.81 Nasal congestion; C90.00 Multiple myeloma not having achieved remission; K21.9 Gastro-esophageal reflux disease without esophagitis; F32.A Depression, unspecified; D64.9 Anemia, unspecified; Z87.891 Personal history of nicotine dependence; Z79.899 Other long term (current) drug therapy
CPT/HCPCS: 31288; 61782; 80048; 85014; 85018; 85049; 93005; J3010; 36415; 88305; 88312; 93010; J0171; J1100; J1170; J2001; J2405; J2704

== ENCOUNTER 2025-01-19 12:40 | Inpatient (IN) | payer MEDICARE, BC ==
[2025-01-19 13:16] VITALS: BMI 28.2
[2025-01-19] MEDS ORDERED: Bisacodyl 5 MG TAB PO PRN (14:07)
[2025-01-19] MEDS ORDERED: Acetaminophen 325 MG TAB PO PRN (14:07)
[2025-01-19] MEDS ORDERED: Acetaminophen 650 MG Suppository PR PRN (14:07)
[2025-01-19] MEDS ORDERED: Ipratropium/Albuterol 3 ML NEB NEB PRN ×2 (14:16→15:13)
[2025-01-19] MEDS ORDERED: clonazePAM 1 MG TAB PO PRN (14:27)
[2025-01-19] MEDS: cefTRIAXone\\ROCEPHIN 2 GM in Sodium Chloride 0.9% 100 ML IVPB SCH (16:48)
[2025-01-19 18:11] LABS: #Basophils 0.07 10x3/uL (0.0-0.2); %Basophils 0.6 % (0.0-1.0); %Eosinophils 0.5 % (0.0-10.0); %Lymphocytes 26.7 % (21.0-51.0); %Monocytes 7.8 % (0.0-10.0); %Neutrophils 63.3 % (42.0-75.0); Hematocrit 30.1 % (36.0-47.0); Hemoglobin 9.6 g/dL (12.0-16.0); Mean Corpuscular HGB CONC 31.9 g/dL (32.0-36.0); Mean Corpuscular Hemoglobin 28.7 pg (27.0-31.0); Mean Corpuscular Volume 89.9 fL (78.0-98.0); Mean Platelet Volume 8.7 fL (7.4-10.4); Platelet Count 356 10x3/uL (130-400); RBC Distribution Width 14.5 % (11.5-14.5); Red Blood Cell (RBC) Count 3.35 mill/uL (4.20-5.40)
[2025-01-19 18:32] LABS: ALT (SGPT) 12 U/L (Less than 34); AST (SGOT) 35 U/L (11-34); Albumin 3.5 g/dL (3.1-4.5); Alkaline Phosphatase 61 U/L (40-110); Anion Gap 14 mmol/L (10-20); BUN (Urea Nitrogen) 11 mg/dL (9.8-20.1); Bilirubin, Total 0.2 mg/dL (0.3-1.2); Calc. Creatinine Clearance 71 mL/min (70-130); Calcium 8.7 mg/dL (7.8-10.44); Carbon Dioxide 19 mmol/L (23-31); Chloride 99 mmol/L (98-107); Estimated GFR 73; Globulin 3.5 g/dL (2.4-3.5); Glucose 133 mg/dL (80-115); Potassium 4.1 mmol/L (3.5-5.1); Sodium 128 mmol/L (136-145)
[2025-01-19] MEDS: clonazePAM 1 MG TAB PO SCH (20:55)
[2025-01-19] MEDS: methylPREDNISolone Sod Succ 40 MG VIAL IVP SCH (20:56)
[2025-01-19] MEDS: Pantoprazole 40 MG DR.TAB PO SCH (20:56)
[2025-01-20 02:14] LABS: Bacteria/HPF None Seen HPF (None Seen); Bilirubin Negative (Negative); Blood, Urine Negative (Negative); Clarity Clear (Clear); Glucose, Urine (Dipstick) Normal (Negative); Ketone, Urine Negative (Negative); Leukocyte Negative Leu/uL (Negative); Nitrite Negative (Negative); Protein, Urine (Dipstick) Negative (Neg-Trace); Specific Gravity, Urine 1.006 (1.002-1.036); Squamous Epithelial 0-3 HPF (0-3); Urobilinogen Normal mg/dL (Less than 2); WBC/HPF 0-3 HPF (0-3); pH, Urine 6.5 (5.0-9.0)
[2025-01-20] MEDS: Levothyroxine Sodium 75 MCG TAB PO SCH (05:53)
[2025-01-20 06:26] LABS: #Basophils 0.06 10x3/uL (0.0-0.2); #Eosinophils Less than 0.03 10x3/uL (0.0-0.7); %Basophils 0.4 % (0.0-1.0); %Lymphocytes 10.9 % (21.0-51.0); %Monocytes 2.4 % (0.0-10.0); %Neutrophils 84.2 % (42.0-75.0); Hematocrit 35.7 % (36.0-47.0); Hemoglobin 11.1 g/dL (12.0-16.0); Mean Corpuscular HGB CONC 31.1 g/dL (32.0-36.0); Mean Corpuscular Hemoglobin 28.7 pg (27.0-31.0); Mean Corpuscular Volume 92.2 fL (78.0-98.0); Mean Platelet Volume 8.5 fL (7.4-10.4); Platelet Count 528 10x3/uL (130-400); RBC Distribution Width 14.4 % (11.5-14.5); Red Blood Cell (RBC) Count 3.87 mill/uL (4.20-5.40)
[2025-01-20] MEDS ORDERED: Ondansetron PF 4 MG/2 ML Vial IVP PRN (06:42)
[2025-01-20 06:47] LABS: ALT (SGPT) 16 U/L (Less than 34); AST (SGOT) 29 U/L (11-34); Alkaline Phosphatase 77 U/L (40-110); Anion Gap 19 mmol/L (10-20); BUN (Urea Nitrogen) 14 mg/dL (9.8-20.1); Bilirubin, Total 0.3 mg/dL (0.3-1.2); Calc. Creatinine Clearance 59 mL/min (70-130); Calcium 9.4 mg/dL (7.8-10.44); Carbon Dioxide 16 mmol/L (23-31); Chloride 100 mmol/L (98-107); Estimated GFR 58; Glucose 239 mg/dL (80-115); Potassium 4.8 mmol/L (3.5-5.1); Sodium 130 mmol/L (136-145)
[2025-01-20] MEDS: Aspirin Chewable 81 MG TAB PO SCH (08:41)
[2025-01-20] MEDS: Lisinopril 10 MG TAB PO SCH (08:41)
[2025-01-20] MEDS: Venlafaxine HCl XR 150 MG CAP PO SCH (08:41)
[2025-01-20] MEDS: clonazePAM 0.5 MG TAB PO PRN (08:47)
[2025-01-20] MEDS ORDERED: Famotidine 20 MG TAB PO SCH (09:00)
[2025-01-20] MEDS: Senokot S 8.6-50 MG TAB PO PRN (16:48)
[2025-01-20] MEDS ORDERED: Insulin Lispro 100 UNIT/ML 10 ML VIAL SC PRN (18:28)
[2025-01-20] MEDS ORDERED: Glucagon 1 MG/ML KIT IM PRN (18:28)
[2025-01-20] MEDS ORDERED: Dextrose 50% Abboject 50 ML SYRINGE SLOW IVP PRN (18:28)
[2025-01-20] MEDS ORDERED: Dextrose 5% in Water 1,000 ML IV PRN (18:28)
[2025-01-21 05:28] LABS: #Basophils Less than 0.03 10x3/uL (0.0-0.2); #Eosinophils Less than 0.03 10x3/uL (0.0-0.7); %Basophils 0.1 % (0.0-1.0); %Lymphocytes 7.9 % (21.0-51.0); %Monocytes 6.4 % (0.0-10.0); %Neutrophils 84.4 % (42.0-75.0); Hematocrit 29.8 % (36.0-47.0); Hemoglobin 9.6 g/dL (12.0-16.0); Mean Corpuscular HGB CONC 32.2 g/dL (32.0-36.0); Mean Corpuscular Hemoglobin 29.2 pg (27.0-31.0); Mean Corpuscular Volume 90.6 fL (78.0-98.0); Mean Platelet Volume 8.6 fL (7.4-10.4); Platelet Count 403 10x3/uL (130-400); RBC Distribution Width 14.8 % (11.5-14.5); Red Blood Cell (RBC) Count 3.29 mill/uL (4.20-5.40)
[2025-01-21 05:56] LABS: Anion Gap 14 mmol/L (10-20); BUN (Urea Nitrogen) 18 mg/dL (9.8-20.1); Calc. Creatinine Clearance 93 mL/min (70-130); Calcium 9.2 mg/dL (7.8-10.44); Carbon Dioxide 20 mmol/L (23-31); Chloride 106 mmol/L (98-107); Estimated GFR 95; Glucose 133 mg/dL (80-115); Potassium 4.7 mmol/L (3.5-5.1); Sodium 135 mmol/L (136-145)
[2025-01-21] MEDS: guaiFENesin ER 600 MG TAB PO SCH (20:31)
[2025-01-21] MEDS: methylPREDNISolone Sod Succ 40 MG VIAL IVP SCH (20:32)
[2025-01-22 06:28] LABS: #Basophils Less than 0.03 10x3/uL (0.0-0.2); #Eosinophils Less than 0.03 10x3/uL (0.0-0.7); %Basophils 0.1 % (0.0-1.0); %Lymphocytes 9.1 % (21.0-51.0); %Monocytes 8.4 % (0.0-10.0); %Neutrophils 81.5 % (42.0-75.0); Hemoglobin 9.7 g/dL (12.0-16.0); Mean Corpuscular HGB CONC 31.3 g/dL (32.0-36.0); Mean Corpuscular Volume 92.5 fL (78.0-98.0); Mean Platelet Volume 8.6 fL (7.4-10.4); Platelet Count 395 10x3/uL (130-400); RBC Distribution Width 14.9 % (11.5-14.5); Red Blood Cell (RBC) Count 3.35 mill/uL (4.20-5.40)
[2025-01-22 06:58] LABS: Anion Gap 12 mmol/L (10-20); BUN (Urea Nitrogen) 16 mg/dL (9.8-20.1); Calc. Creatinine Clearance 93 mL/min (70-130); Calcium 9.1 mg/dL (7.8-10.44); Carbon Dioxide 21 mmol/L (23-31); Chloride 107 mmol/L (98-107); Estimated GFR 95; Glucose 133 mg/dL (80-115); Potassium 4.4 mmol/L (3.5-5.1); Sodium 136 mmol/L (136-145)
[2025-01-23] MEDS: Cefdinir 300 MG CAP PO SCH (20:22)
[2025-01-23 23:29] VITALS: TEMP 98.6
[2025-01-23 23:36] LABS: QuantiFERON-TB Gold Plus Indeterminate (Negative)
[2025-01-24] MEDS: predniSONE 20 MG TAB PO SCH (08:54)
[2025-01-24 11:13] LABS: A. flavus Negative (Neg:<1:1); A. fumigatus Negative (Neg:<1:1); A. niger Negative (Neg:<1:1); Histoplasma Abs, Quant, DID Negative (Neg:<1:1)
[2025-01-24 15:22] VITALS: BP 136/81
== END 2025-01-24 15:10 | disposition home or self-care (01) | DRG 202 ==
LOC: T4-B 12:40
PROVIDERS: ADMIT Internal Medicine; ATTEND Family Medicine
DX: J45.909 Unspecified asthma, uncomplicated (principal); C90.00 Multiple myeloma not having achieved remission; D80.1 Nonfamilial hypogammaglobulinemia; F33.9 Major depressive disorder, recurrent, unspecified; D84.9 Immunodeficiency, unspecified; Z94.84 Stem cells transplant status; E03.9 Hypothyroidism, unspecified; I10 Essential (primary) hypertension; F41.9 Anxiety disorder, unspecified; K44.9 Diaphragmatic hernia without obstruction or gangrene; K21.9 Gastro-esophageal reflux disease without esophagitis; D63.0 Anemia in neoplastic disease; Z87.891 Personal history of nicotine dependence
CPT/HCPCS: 36416; 71046; 71250; 80048; 80053; 81001; 84300; 85025; 86480; 86606; 86698; 87070; 87205; 87633; J0696; J2919; J7512

== ENCOUNTER 2025-07-29 09:38 | Outpatient (CLI) | payer MEDICARE, BC | END 2025-07-29 09:39 | disposition home or self-care (01) | LOC: BICCT 09:38 | PROVIDERS: ATTEND Internal Medicine Critical Care Medicine | DX: C90.02 Multiple myeloma in relapse (principal); R91.8 Other nonspecific abnormal finding of lung field; J84.10 Pulmonary fibrosis, unspecified; K44.9 Diaphragmatic hernia without obstruction or gangrene | CPT/HCPCS: 71250 ==